=== PATIENT | female | born 1990 | race Two or more races ===

== ENCOUNTER 2022-09-04 08:00 | Observation (INO) | payer MEDICAID ==
[~2022-09-04] VITALS: Ht 167.6 cm; Wt 124.7 kg
[2022-09-04] MEDS ORDERED: PREN-96 PO (09:23)
[2022-09-04] MEDS ORDERED: METF-370 PO (09:24)
== END 2022-09-04 10:15 | disposition home or self-care (01) ==
LOC: LDRP 08:00
PROVIDERS: ADMIT Obstetrics & Gynecology; ATTEND Obstetrics & Gynecology
DX: O24.419 Gestational diabetes mellitus in pregnancy, unspecified control (principal); Z3A.30 30 weeks gestation of pregnancy
CPT/HCPCS: 76818; 82962; G0378; 59025; 81002; 82948; 94760

== ENCOUNTER 2022-09-08 08:00 | Observation (INO) | payer MEDICAID ==
[~2022-09-08 08:00] MED LIST: METF-370 PO; PREN-96 PO
== END 2022-09-08 09:43 | disposition home or self-care (01) ==
LOC: UNDOADMOB 08:00 → LDRP 08:00 → UNDODISOB 09:43
PROVIDERS: ADMIT Obstetrics & Gynecology; ATTEND Obstetrics & Gynecology
DX: O24.419 Gestational diabetes mellitus in pregnancy, unspecified control (principal); Z3A.31 31 weeks gestation of pregnancy
CPT/HCPCS: 59025; 76818; 81002; 82948; 82962; 94760; G0378

== ENCOUNTER 2022-09-11 08:00 | Observation (INO) | payer MEDICAID | END 2022-09-11 10:05 | disposition home or self-care (01) | LOC: UNDOADMOB 08:00 → LDRP 08:00 → UNDODISOB 10:05 | PROVIDERS: ADMIT Obstetrics & Gynecology; ATTEND Obstetrics & Gynecology | DX: O24.419 Gestational diabetes mellitus in pregnancy, unspecified control (principal); O26.893 Other specified pregnancy related conditions, third trimester; R11.0 Nausea; Z3A.31 31 weeks gestation of pregnancy | CPT/HCPCS: 59025; 76818; 81002; 82948; 82962; 94760; G0378 ==

== ENCOUNTER 2022-09-15 08:03 | Observation (INO) | payer MEDICAID | END 2022-09-15 10:56 | disposition home or self-care (01) | LOC: LDRP 08:03 → UNDOADMOB 08:03 → LDRP 08:24 → UNDODISOB 10:56 | PROVIDERS: ADMIT Obstetrics & Gynecology; ATTEND Obstetrics & Gynecology | DX: O24.419 Gestational diabetes mellitus in pregnancy, unspecified control (principal); Z3A.32 32 weeks gestation of pregnancy | CPT/HCPCS: 59025; 76818; 81002; 82948; 82962; 94762; G0378 ==

== ENCOUNTER 2022-09-18 08:02 | Observation (INO) | payer MEDICAID | END 2022-09-18 10:06 | disposition home or self-care (01) | LOC: LDRP 08:02 → UNDOADMOB 08:02 → LDRP 08:15 → UNDODISOB 10:06 | PROVIDERS: ADMIT Obstetrics & Gynecology; ATTEND Obstetrics & Gynecology | DX: O24.419 Gestational diabetes mellitus in pregnancy, unspecified control (principal); Z3A.32 32 weeks gestation of pregnancy; Z79.84 Long term (current) use of oral hypoglycemic drugs | CPT/HCPCS: 59025; 76818; 81002; 82948; 82962; 94760; G0378; 96372 ==

== ENCOUNTER 2022-09-19 16:11 | Observation (INO) | payer MEDICAID ==
[~2022-09-19] VITALS: Ht 167.6 cm; Wt 123.4 kg
== END 2022-09-19 17:47 | disposition home or self-care (01) ==
LOC: LDRP 16:11
PROVIDERS: ADMIT Obstetrics & Gynecology; ATTEND Obstetrics & Gynecology
DX: Z34.93 Encounter for supervision of normal pregnancy, unspecified, third trimester (principal); Z3A.32 32 weeks gestation of pregnancy; Z79.899 Other long term (current) drug therapy; W19.XXXA Unspecified fall, initial encounter; Y92.89 Other specified places as the place of occurrence of the external cause; Y93.89 Activity, other specified; Y99.8 Other external cause status
CPT/HCPCS: 59025; 76815; 81002; 82948; 82962; 94760; G0378

== ENCOUNTER 2022-09-29 08:03 | Observation (INO) | payer MEDICAID | END 2022-09-29 10:02 | disposition home or self-care (01) | LOC: UNDOADMOB 08:03 → LDRP 08:03 → UNDODISOB 10:02 | PROVIDERS: ADMIT Obstetrics & Gynecology; ATTEND Obstetrics & Gynecology | DX: O24.419 Gestational diabetes mellitus in pregnancy, unspecified control (principal); Z3A.34 34 weeks gestation of pregnancy; Z87.891 Personal history of nicotine dependence | CPT/HCPCS: 59025; 76818; 81002; 82948; G0378 ==

== ENCOUNTER 2022-10-02 08:15 | Observation (INO) | payer MEDICAID ==
[~2022-10-02] VITALS: Ht 167.6 cm; Wt 125.6 kg
[2022-10-02] MEDS ORDERED: BETAMETHASONE ACET (30mg/5ml) 5ml Vial 6mg/ml IM ONE (09:45)
[2022-10-02] MEDS ORDERED: LACTATED RINGER'S 1,000 ML IV ONE (09:45)
[2022-10-02 13:11] LABS: Urine Bacteria FEW /hpf (None Seen); Urine Blood Negative /uL (Negative); Urine Specific Gravity 1.005 (1.001-1.035); Urine WBC <1 /hpf (0 - 5)
[2022-10-02 13:20] LABS: Alcohol, Urine < 3.0 mg/dL (0-10); Barbiturate Scree,Urine NEGATIVE (NEGATIVE); Cannabinoid Screen, Urine NEGATIVE (NEGATIVE); Cocaine Screen, Urine NEGATIVE (NEGATIVE)
[2022-10-02 13:22] LABS: Amphetamine Screen, Urine NEGATIVE (NEGATIVE); Benzodiazephine Screen, Urine NEGATIVE (NEGATIVE); Opiate Scree,Urine NEGATIVE (NEGATIVE); Phencyclidine Screen, Urine NEGATIVE (NEGATIVE)
== END 2022-10-02 11:50 | disposition home or self-care (01) ==
LOC: LDRP 08:15 → UNDOADMOB 08:15 → LDRP 08:27
PROVIDERS: ADMIT Obstetrics & Gynecology; ATTEND Obstetrics & Gynecology
DX: O24.419 Gestational diabetes mellitus in pregnancy, unspecified control (principal); Z3A.34 34 weeks gestation of pregnancy; Z79.899 Other long term (current) drug therapy
CPT/HCPCS: 59025; 76805; 76818; 80307; 81001; 81002; 82948; 82962; 90471; 94760; 96360; 96361; G0378; J0702; 96372

== ENCOUNTER 2022-10-03 09:51 | Observation (INO) | payer MEDICAID ==
[~2022-10-03] VITALS: Ht 167.6 cm; Wt 125.6 kg
[2022-10-03] MEDS ORDERED: BETAMETHASONE ACET (30mg/5ml) 5ml Vial 6mg/ml IM ONE (10:15)
== END 2022-10-03 10:39 | disposition home or self-care (01) ==
LOC: LDRP 09:51
PROVIDERS: ADMIT Obstetrics & Gynecology; ATTEND Obstetrics & Gynecology
DX: O24.419 Gestational diabetes mellitus in pregnancy, unspecified control (principal); Z3A.34 34 weeks gestation of pregnancy
CPT/HCPCS: 96372; G0378

== ENCOUNTER 2022-10-05 08:00 | Observation (INO) | payer MEDICAID | END 2022-10-05 10:30 | disposition home or self-care (01) | LOC: UNDOADMOB 08:00 → LDRP 08:00 → UNDODISOB 10:30 | PROVIDERS: ADMIT Obstetrics & Gynecology; ATTEND Obstetrics & Gynecology | DX: O60.03 Preterm labor without delivery, third trimester (principal); O24.419 Gestational diabetes mellitus in pregnancy, unspecified control; Z3A.34 34 weeks gestation of pregnancy | CPT/HCPCS: 59025; 76818; 81002; 82962; 94760; G0378 ==

== ENCOUNTER 2022-10-08 14:00 | Observation (INO) | payer MEDICAID | END 2022-10-08 15:10 | disposition home or self-care (01) | LOC: LDRP 14:00 → UNDOADMOB 14:00 → LDRP 14:05 → UNDODISOB 15:10 | PROVIDERS: ADMIT Obstetrics & Gynecology; ATTEND Obstetrics & Gynecology | DX: O24.419 Gestational diabetes mellitus in pregnancy, unspecified control (principal); Z3A.35 35 weeks gestation of pregnancy; Z87.891 Personal history of nicotine dependence | CPT/HCPCS: 59025; 76818; 81002; 82948; 82962; 94760; G0378 ==

== ENCOUNTER 2022-10-13 08:03 | Observation (INO) | payer MEDICAID ==
[~2022-10-13] VITALS: Ht 66 cm; Wt 126.0 kg
[2022-10-13] MEDS ORDERED: LACTATED RINGER'S 1,000 ML IV ONE (11:15)
== END 2022-10-13 11:48 | disposition home or self-care (01) ==
LOC: LDRP 08:03
PROVIDERS: ADMIT Obstetrics & Gynecology; ATTEND Obstetrics & Gynecology
DX: O24.419 Gestational diabetes mellitus in pregnancy, unspecified control (principal); Z3A.36 36 weeks gestation of pregnancy
CPT/HCPCS: 59025; 76805; 76818; 81002; 82948; 82962; 94760; 96360; G0378

== ENCOUNTER 2022-10-16 08:05 | Observation (INO) | payer MEDICAID ==
[~2022-10-16] VITALS: Ht 167.6 cm; Wt 123.8 kg
== END 2022-10-16 10:00 | disposition home or self-care (01) ==
LOC: LDRP 08:05
PROVIDERS: ADMIT Obstetrics & Gynecology; ATTEND Obstetrics & Gynecology
DX: O24.419 Gestational diabetes mellitus in pregnancy, unspecified control (principal); Z3A.36 36 weeks gestation of pregnancy
CPT/HCPCS: 59025; 76818; 81002; 82948; 94760; G0378

== ENCOUNTER 2022-10-20 12:05 | Observation (INO) | payer MEDICAID | END 2022-10-20 14:31 | disposition home or self-care (01) | LOC: LDRP 12:05 | PROVIDERS: ADMIT Obstetrics & Gynecology; ATTEND Obstetrics & Gynecology | DX: O24.419 Gestational diabetes mellitus in pregnancy, unspecified control (principal); Z3A.37 37 weeks gestation of pregnancy; Z87.891 Personal history of nicotine dependence | CPT/HCPCS: 59025; 76818; 81002; 82948; 82962; 94760; G0378 ==

== ENCOUNTER → 2022-10-28 | Outpatient (CLI) | payer MEDICAID ==
[2022-10-28 11:56] LABS: Basophils # (auto) 0 10 ^3/uL (0-0.2); Basophils % (auto) 0.6 % (0.0-2.0); Eosinophils # (auto) 0.1 10 ^3/uL (0-0.8); Eosinophils % (auto) 1.4 % (0.0-7.0); Hematocrit 36.2 % (36.0-46.0); Hemoglobin 12.1 g/dL (12.2-16.2); Lymphocytes # (auto) 1.6 10 ^3/uL (0.4-5.4); Lymphocytes % (auto) 32.9 % (10.0-50.0); Mean Corpuscular Hemoglobin 28.1 pg (28.0-32.0); Mean Corpuscular Hgb Conc. 33.5 g/dL (32.0-36.0); Monocytes # (auto) 0.5 10 ^3/uL (0-1.3); Monocytes % (auto) 10.1 % (0.0-12.0); Neutrophils # (auto) 2.7 10 ^3/uL (1.6-8.6); Nucleated Red Blood Cells % 0.1 %; Red Cell Distribution Width 15.8 % (11.8-14.3); White Blood Cell 4.9 10^3/uL (4.4-10.8)
[2022-10-29 07:06] LABS: RPR Non Reactive (Non Reactive)
== END | disposition home or self-care (01) ==
LOC: LAB 11:20
PROVIDERS: ATTEND Obstetrics & Gynecology
DX: Z34.80 Encounter for supervision of other normal pregnancy, unspecified trimester (principal); Z3A.00 Weeks of gestation of pregnancy not specified
CPT/HCPCS: 36415; 84112; 85025; 86592

== ENCOUNTER 2022-11-03 07:14 | Observation (INO) | payer MEDICAID ==
[2022-11-09] MEDS ORDERED: HYDR-4902 PO (07:01)
[2022-11-09] MEDS ORDERED: DOCU-94 PO (07:01)
== END 2022-11-03 09:17 | disposition home or self-care (01) ==
LOC: LDRP 07:14
PROVIDERS: ADMIT Obstetrics & Gynecology; ATTEND Obstetrics & Gynecology
DX: O24.419 Gestational diabetes mellitus in pregnancy, unspecified control (principal); Z3A.39 39 weeks gestation of pregnancy; Z87.891 Personal history of nicotine dependence
CPT/HCPCS: 59025; 76818; 81002; 82948; 82962; 94760; G0378

== ENCOUNTER 2022-11-06 08:43 | Inpatient (IN) | payer MEDICAID ==
[~2022-11-06] VITALS: Ht 167.6 cm; Wt 123.4 kg
[2022-11-06] MEDS ORDERED: LIDOCAINE 2%HCL (LOCAL ANESTH.) INJ 20ML MDV IJ PRN (10:00)
[2022-11-06] MEDS ORDERED: PROMETHAZINE HCL 25 MG/ML 1ML IV PRN (10:00)
[2022-11-06] MEDS ORDERED: WITCH HAZEL-GLYCERIN PAD TOP PRN (10:00)
[2022-11-06] MEDS ORDERED: LACTATED RINGER'S 1,000 ML IV SCH (10:00)
[2022-11-06] MEDS: ACCU-CHEK COMFORT CURVE STRIP VI SCH (10:00)
[2022-11-06] MEDS ORDERED: BUTORPHANOL TARTRATE 2 MG/1 ML VIAL IV PRN ×2 (10:00)
[2022-11-06] MEDS ORDERED: miSOPROStol 50 MCG per PRE-CUT 1/2 TAB PO PRN (10:00)
[2022-11-06] MEDS ORDERED: PHISODERM TOP SOLN 240ML BTL TOP PRN (10:00)
[2022-11-06] MEDS ORDERED: PROMETHAZINE HCL 25 MG/ML 1ML IM PRN (10:00)
[2022-11-06] MEDS ORDERED: DERMOPLAST 60ML BOTTLE TOP PRN (10:00)
[2022-11-06 10:46] LABS: Basophils # (auto) 0 10 ^3/uL (0-0.2); Basophils % (auto) 0.6 % (0.0-2.0); Eosinophils # (auto) 0.1 10 ^3/uL (0-0.8); Eosinophils % (auto) 1.4 % (0.0-7.0); Hematocrit 38.6 % (36.0-46.0); Hemoglobin 12.9 g/dL (12.2-16.2); Lymphocytes # (auto) 2.1 10 ^3/uL (0.4-5.4); Lymphocytes % (auto) 39.5 % (10.0-50.0); Mean Corpuscular Hemoglobin 27.6 pg (28.0-32.0); Mean Corpuscular Hgb Conc. 33.4 g/dL (32.0-36.0); Mean Corpuscular Volume 82.7 fL (80.0-100.0); Monocytes # (auto) 0.5 10 ^3/uL (0-1.3); Monocytes % (auto) 9.6 % (0.0-12.0); Neutrophils # (auto) 2.6 10 ^3/uL (1.6-8.6); Neutrophils % (auto) 48.9 % (37.0-80.0); Nucleated Red Blood Cells % 0.1 %; Red Blood Cells 4.67 10^6/uL (4.0-5.20); Red Cell Distribution Width 15.8 % (11.8-14.3); White Blood Cell 5.3 10^3/uL (4.4-10.8)
[2022-11-06 10:57] LABS: Albumin 2.7 g/dL (3.4-5.0); Calcium 8.3 mg/dL (8.5-10.1); Potassium 3.7 mmol/L (3.5-5.1)
[2022-11-06 11:01] LABS: BUN/Creatinine Ratio 14.1 (10.0-20.0); Bilirubin, Total 0.3 mg/dL (0.2-1.0); Total Protein 6.9 g/dL (6.4-8.2)
[2022-11-06 11:58] LABS: Urine Bacteria FEW /hpf (None Seen); Urine Blood TRACE /uL (Negative); Urine Mucus FEW (None Seen); Urine Specific Gravity 1.028 (1.001-1.035); Urine WBC 4 /hpf (0 - 5)
[2022-11-06 12:50] LABS: Amphetamine Screen, Urine NEGATIVE (NEGATIVE); Barbiturate Scree,Urine NEGATIVE (NEGATIVE); Benzodiazephine Screen, Urine NEGATIVE (NEGATIVE); Cannabinoid Screen, Urine NEGATIVE (NEGATIVE); Cocaine Screen, Urine NEGATIVE (NEGATIVE); Opiate Scree,Urine NEGATIVE (NEGATIVE)
[2022-11-06 13:10] LABS: Phencyclidine Screen, Urine NEGATIVE (NEGATIVE)
[2022-11-06] MEDS: D5W/LACTATED RINGERS 1,000 ML IV SCH ×2 (14:56→21:36)
[2022-11-06] MEDS ORDERED: LACT. RINGERS/OXYTOCIN 20UNITS 500 ML IV ONE ×2 (16:45→17:15)
[2022-11-06] MEDS ORDERED: TERBUTALINE SULFATE 1 MG/ML 1ML VIAL SC PRN (16:45)
[2022-11-06] MEDS: LACT. RINGERS/OXYTOCIN 20UNITS 1,000 ML IV SCH (17:21)
[2022-11-07] VITALS (16 sets, daily range): BP systolic 108–129; BP diastolic 59–83; PULSE 63–92; RESP 14–18; TEMP 98.3–98.4; O2SAT 94–100
[2022-11-07] MEDS ORDERED: LACTATED RINGER'S 500 ML IV ONE (03:15)
[2022-11-07] MEDS: LACT. RINGERS/OXYTOCIN 20UNITS 1,000 ML IV SCH (03:21)
[2022-11-07 05:07] LABS: RPR Non Reactive (Non Reactive)
[2022-11-07] MEDS ORDERED: SODIUM CHLORIDE 0.9% 1,000 ML IUPC SCH (06:00)
[2022-11-07] MEDS ORDERED: SODIUM CHLORIDE 0.9% 300 ML IUPC ONE (06:00)
[2022-11-07] MEDS ORDERED: ceFAZolin 1GM/50ML 50 ML IV ONE ×3 (06:45→07:00)
[2022-11-07] MEDS ORDERED: MORPHINE SULFATE 4 MG/ML SYR/VIAL IV PRN (07:00)
[2022-11-07] MEDS ORDERED: LACTATED RINGER'S 1,000 ML IV SCH ×2 (07:00→13:30)
[2022-11-07] MEDS ORDERED: ONDANSETRON HCL 4 MG/2 ML VIAL IV PRN ×4 (07:00→13:30)
[2022-11-07] MEDS ORDERED: LACT. RINGERS/OXYTOCIN 20UNITS 1,000 ML IV SCH (07:00)
[2022-11-07] MEDS ORDERED: BUPIVACAINE 0.5% P/F INJ 10 ML VIAL ONE (07:15)
[2022-11-07] MEDS ORDERED: MORPHINE SULF PF 5 MG/10 ML VIAL ONE (07:17)
[2022-11-07] MEDS ORDERED: fentaNYL CITRATE 100 MCG/2 ML VL ONE (07:18)
[2022-11-07] MEDS ORDERED: oxyTOCIN 10 UNIT/ML 10ML VIAL ONE (07:20)
[2022-11-07] MEDS ORDERED: ePHEDrine SULFATE 50 MG/ML AMP ONE (07:20)
[2022-11-07] MEDS ORDERED: ONDANSETRON HCL 4 MG/2 ML VIAL ONE (07:20)
[2022-11-07] MEDS ORDERED: KETOROLAC TROMETH 30 MG/ML 1ML VIAL ONE (07:20)
[2022-11-07] MEDS ORDERED: GLYCOPYRROLATE 0.2 MG/ML 1ML VIAL ONE (07:20)
[2022-11-07] MEDS ORDERED: DexAMETHasone SOD PHOS 10MG/1ML VIAL INJ ONE (07:20)
[2022-11-07] MEDS ORDERED: LIDOCAINE 1% HCL (LOCAL ANESTH.) INJ 20ML MDV ONE (07:59)
[2022-11-07] MEDS ORDERED: MIDAZOLAM HCL 2MG/2ML 2ml VIAL (1mg/ml) ONE (08:01)
[2022-11-07] MEDS ORDERED: DexAMETHasone SOD PHOS 10MG/1ML VIAL INJ IV PRN (09:15)
[2022-11-07] MEDS ORDERED: KETOROLAC TROMETH 30 MG/ML 1ML VIAL IV PRN (09:15)
[2022-11-07] MEDS ORDERED: NALOXONE HCL 0.4 MG/ML VIAL IV PRN (09:15)
[2022-11-07] MEDS ORDERED: ACCU-CHEK COMFORT CURVE STRIP VI ONE (09:15)
[2022-11-07] MEDS ORDERED: FAMOTIDINE (10MG/ML) 2ML VL IV ONE ×2 (09:54→10:00)
[2022-11-07] MEDS: diphenhdrAMINE HCL 50 MG/1 ML VL IV PRN ×3 (11:08→20:17)
[2022-11-07] MEDS ORDERED: FAMOTIDINE (10MG/ML) 2ML VL IV PRN (11:15)
[2022-11-07] MEDS ORDERED: ACETAMINOPHEN IV 1000 MG/100ML (10MG/ML) IV PRN (11:30)
[2022-11-07] MEDS ORDERED: NS/OXYTOCIN 20UNITS 1,000 ML IV SCH (13:30)
[2022-11-07] MEDS: ceFAZolin 1GM/50ML 50 ML IV SCH ×2 (15:28→22:49)
[2022-11-08] VITALS (10 sets, daily range): BP systolic 112–136; BP diastolic 59–84; PULSE 73–86; RESP 15–18; TEMP 97.9–98.2; O2SAT 98–100
[2022-11-08] MEDS: diphenhdrAMINE HCL 50 MG/1 ML VL IV PRN (03:28)
[2022-11-08] MEDS: ACCU-CHEK COMFORT CURVE STRIP VI SCH (05:56)
[2022-11-08 06:12] LABS: Basophils # (auto) 0 10 ^3/uL (0-0.2); Basophils % (auto) 0.2 % (0.0-2.0); Eosinophils # (auto) 0.1 10 ^3/uL (0-0.8); Eosinophils % (auto) 1.1 % (0.0-7.0); Hematocrit 37.2 % (36.0-46.0); Hemoglobin 11.9 g/dL (12.2-16.2); Lymphocytes # (auto) 1.3 10 ^3/uL (0.4-5.4); Lymphocytes % (auto) 24.2 % (10.0-50.0); Mean Corpuscular Hemoglobin 26.3 pg (28.0-32.0); Mean Corpuscular Hgb Conc. 32.1 g/dL (32.0-36.0); Monocytes # (auto) 0.5 10 ^3/uL (0-1.3); Monocytes % (auto) 9.9 % (0.0-12.0); Neutrophils # (auto) 3.4 10 ^3/uL (1.6-8.6); Neutrophils % (auto) 64.6 % (37.0-80.0); Nucleated Red Blood Cells % 0.1 %; Red Blood Cells 4.53 10^6/uL (4.0-5.20); Red Cell Distribution Width 15.2 % (11.8-14.3); White Blood Cell 5.3 10^3/uL (4.4-10.8)
[2022-11-08] MEDS: ceFAZolin 1GM/50ML 50 ML IV SCH (07:09)
[2022-11-08] MEDS ORDERED: BISACODYL 10 MG RECT SUPP PR PRN (07:15)
[2022-11-08] MEDS ORDERED: IBUPROFEN 800 MG TAB PO PRN (07:15)
[2022-11-08] MEDS ORDERED: HYDROcodone-ACET 5/325MG TAB PO PRN ×2 (07:15)
[2022-11-08] MEDS ORDERED: DOCUSATE SOD 100 MG CAP PO SCH (10:00)
[2022-11-08] MEDS ORDERED: DOCUSATE CALCIUM 240 MG CAP PO SCH (10:00)
[2022-11-08] MEDS ORDERED: IBUP-1456 PO (11:41)
[2022-11-08] MEDS ORDERED: SIMETHICONE 80 MG CHEWABLE TABLET PO SCH (12:00)
[2022-11-09] MEDS ORDERED: DOCU-94 PO (07:01)
[2022-11-09] MEDS ORDERED: HYDR-4902 PO (07:01)
== END 2022-11-08 12:22 | disposition home or self-care (01) | DRG 540 ==
LOC: LDRP 09:13
PROVIDERS: ADMIT Obstetrics & Gynecology; ATTEND Obstetrics & Gynecology
PROC: 3E0P7VZ Introduction of Hormone into Female Reproductive, Via Natural or Artificial Opening (ICD-10-PCS; 2022-11-06)
PROC: 10D00Z1 Extraction of Products of Conception, Low, Open Approach (ICD-10-PCS; principal; 2022-11-07 07:25)
DX: O76 Abnormality in fetal heart rate and rhythm complicating labor and delivery (principal); O24.429 Gestational diabetes mellitus in childbirth, unspecified control; Z37.0 Single live birth; Z3A.39 39 weeks gestation of pregnancy
CPT/HCPCS: 36415; 59025; 76818; 80053; 80307; 81001; 81002; 82948; 82962; 85025; 85610; 85730; 86592; 86850; 86900; 86901; 94760; 94762; 96360; 96361; 96365; 96366; 96374; 96375; G0378; J0131; J0690; J1100; J1885; J2001; J2250; J2405; J2590; J3490